=== PATIENT | male | born 1985 | race Caucasian/White ===

== ENCOUNTER 2023-10-05 11:46 | Emergency (ER) | payer OTHER, SELFPAY ==
--- NOTE | ~2023-10-05 | XR_ITS ---
EXAMINATION: XR SHOULDER, LEFT CLINICAL INFORMATION: Pain. Lifting injury. COMPARISON: None available. TECHNIQUE: Three views of the left shoulder. FINDINGS: The bones and soft tissues are normal. No fracture. Glenohumeral and acromioclavicular alignment is anatomic with normal joint space. No abnormal soft tissue calcifications. XR/XR shoulder LT min 2V IMPRESSION: Normal left shoulder.
[2023-10-05 12:37] VITALS: BP 157/94; PULSE 100; RESP 20; TEMP 36.6; O2SAT 96; BMI 39.6
--- NOTE | 2023-10-05 12:41 | ED.GENADULT ---
HPI - General Adult General Chief complaint: Extremity Problem Stated complaint: shoulder inj History of Present Illness HPI narrative: LWCT Related Data Allergies Allergy/AdvReac Type Severity Reaction Status Date / Time latex [LATEX] Allergy Unknown RASH Verified 10/05/23 12:41 Physical Exam ED Vital Signs: Vital Signs - 24 hr 10/05/23 12:37 Temperature 97.8 F Pulse Rate 100 Respiratory Rate 20 Blood Pressure 157/94 H Pulse Oximetry 96 Oxygen Delivery Method Room Air BMI result Body Mass Index 39.6 Course Course Course Narrative: This is an RME performed by Ajay Goetz CNP: Additional HPI, ROS, PE not included below will be deferred to primary provider. Patient is a 38-year-old male who presents emergency department reporting left shoulder injury. He reports yesterday he was carrying a heavy base drum, he tripped over his cat, denies any actual fall but he had to maneuver to prevent the drum from falling. He had minor pain to the left shoulder initially. Upon awakening this morning he had severe increase in pain, reports inability to move the left shoulder upon awakening. Denies numbness tingling or cold sensation to the extremity. Denies prior injury. Physical exam: 2+ radial pulse present bilaterally, skin warm dry, sensation intact. Able to externally rotate the left shoulder with some limitation to range due to pain. Able to forward flex, decreased overhead extension Plan: XR Discharge Plan Discharge Clinical Impression: Acute shoulder pain Patient Disposition: Left W/O Completing Treatment Print Language: Bangladeshi
== END 2023-10-05 22:35 | disposition left against medical advice (07) ==
LOC: HO.ED 22:33
PROVIDERS: Emergency Provider Emergency Medicine
DX: M25.512 Pain in left shoulder (principal)
CPT/HCPCS: 73030; 99281; 99283